=== PATIENT | male | born 1980 | race Caucasian/White ===

== ENCOUNTER 2018-06-04 14:38 | Emergency (ER) | payer MEDICAID ==
[~2018-06-04] VITALS: Ht 180.3 cm; Wt 112.5 kg
[2018-06-04 14:42] VITALS: Ht 180.3 cm; Wt 112.5 kg
[2018-06-04 16:12] VITALS: BP 122/75
== END 2018-06-04 16:12 | disposition home or self-care (01) ==
LOC: ED 14:38
DX: J02.9 Acute pharyngitis, unspecified (principal)